=== PATIENT | female | born 2000 | race Caucasian/White ===

== ENCOUNTER → 2021-07-09 | Outpatient (CLI) | payer MEDICAID ==
[2021-07-09 17:37] LABS: HEMATOCRIT 35.9 % (36.0-47.0); HEMOGLOBIN 11.7 g/dl (12.0-15.5); MEAN CORPUSCULAR HEMOGLOBIN 27.9 pg (27.0-33.0); MEAN CORPUSCULAR HGB CONC 32.6 g/dl (32.0-36.5); MEAN CORPUSCULAR VOLUME 85.7 fl (80.0-96.0); PLATELET COUNT, AUTOMATED 335 10^3/uL (150-450); RED BLOOD COUNT 4.19 10^6/uL (4.00-5.40); WHITE BLOOD COUNT 7.6 10^3/uL (4.0-10.0)
[2021-07-09 19:35] LABS: HEPATITIS C VIRUS ABY INDEX 0.1 INDEX (<0.8); HIV 1&2 SCREEN CENTAUR NEGATIVE (NEGATIVE)
[2021-07-10 12:33] LABS: GC DNA AMPLIFICATION NEGATIVE (NEGATIVE)
== END ==
LOC: M PLALAB 15:47
PROVIDERS: ATTEND Advanced Practice Midwife
DX: Z34.91 Encounter for supervision of normal pregnancy, unspecified, first trimester (principal); Z3A.00 Weeks of gestation of pregnancy not specified

== ENCOUNTER → 2021-07-09 | Outpatient (CLI) | payer MEDICAID | LOC: M WHC 15:02 | PROVIDERS: ATTEND Advanced Practice Midwife | DX: Z34.02 Encounter for supervision of normal first pregnancy, second trimester (principal); Z3A.20 20 weeks gestation of pregnancy ==

== ENCOUNTER → 2021-10-08 | Outpatient (CLI) | payer MEDICAID ==
[2021-10-08 13:13] LABS: HEMATOCRIT 33.3 % (36.0-47.0); HEMOGLOBIN 10.6 g/dl (12.0-15.5); MEAN CORPUSCULAR HGB CONC 31.8 g/dl (32.0-36.5); MEAN CORPUSCULAR VOLUME 84.9 fl (80.0-96.0); PLATELET COUNT, AUTOMATED 271 10^3/uL (150-450); RED BLOOD COUNT 3.92 10^6/uL (4.00-5.40)
[2021-10-08 14:32] LABS: GC DNA AMPLIFICATION NEGATIVE (NEGATIVE)
== END ==
LOC: M PLALAB 10:15
PROVIDERS: ATTEND Obstetrics & Gynecology
DX: Z36.9 Encounter for antenatal screening, unspecified (principal); Z3A.33 33 weeks gestation of pregnancy

== ENCOUNTER → 2021-11-05 | Outpatient (REF) | payer MEDICAID | LOC: M SFHCWAGY 09:56 | PROVIDERS: ATTEND Obstetrics & Gynecology | DX: Z36.85 Encounter for antenatal screening for Streptococcus B (principal) ==

== ENCOUNTER 2021-11-24 21:41 | Inpatient (IN) | payer MEDICAID ==
[2021-11-24] VITALS (10 sets, daily range): BP systolic 111–172; BP diastolic 63–87
[~2021-11-24] VITALS: Ht 154.9 cm; Wt 71.9 kg
[2021-11-24] MEDS ORDERED: PRENTAB9 PO (22:06)
[2021-11-24] MEDS ORDERED: HOME MED LIST COMPLETE! XX SCH (22:10)
[2021-11-24] MEDS ORDERED: LR 1,000 ML IV ONE (22:45)
[2021-11-24 23:00] LABS: HEMATOCRIT 33.3 % (36.0-47.0); MEAN CORPUSCULAR HEMOGLOBIN 26.6 pg (27.0-33.0); MEAN CORPUSCULAR VOLUME 80.6 fl (80.0-96.0); PLATELET COUNT, AUTOMATED 264 10^3/uL (150-450); RED BLOOD COUNT 4.13 10^6/uL (4.00-5.40); WHITE BLOOD COUNT 12.9 10^3/uL (4.0-10.0)
[2021-11-24] MEDS ORDERED: EPIDURAL COMMENT XX SCH (23:15)
[2021-11-24] MEDS ORDERED: FENTANYL/ROPIVACAINE/NACL BAG 100 ML EPIDURAL SCH (23:15)
[2021-11-24] MEDS ORDERED: diphenhydrAMINE 50MG/ML VIAL (J1200) IV PRN (23:15)
[2021-11-24] MEDS ORDERED: EPIDURAL/PCA KEYS XX PRN (23:15)
[2021-11-24] MEDS ORDERED: LACTATED RINGER'S 1000 ML IV PRN (23:15)
[2021-11-24] MEDS ORDERED: ONDANSETRON 4MG/2ML VIAL IV PRN (23:15)
[2021-11-24] MEDS ORDERED: ePHEDrine SULFATE 25 MG/5 ML(5MG/ML) SYRINGE IV PRN (23:15)
[2021-11-24] MEDS ORDERED: REFRIGERATOR IV KEYS XX PRN (23:15)
[2021-11-24] MEDS ORDERED: NALOXONE INJ 0.4MG/1ML VIAL (J2310 PER 1MG) IV PRN (23:15)
[2021-11-24] MEDS ORDERED: FENTANYL 2MCG/ML ROPIVACAINE 0.2% IN 0.9% NACL 100ML IVBAG As Ordered ONE (23:21)
[2021-11-25] VITALS (16 sets, daily range): BP systolic 110–137; BP diastolic 59–70
[2021-11-25] MEDS ORDERED: OXYTOCIN 30 UNITS IN 0.9% NaCl 500ML IV BAG (J2590) As Ordered ONE ×2 (00:23→04:05)
[2021-11-25] MEDS ORDERED: MEASLES,MUMPS,RUBELLA VACCINE INJ (MMR-II) (90707) SC SCH (03:15)
[2021-11-25] MEDS ORDERED: RHOGAM 300 MCG (1500 IU) INJ (J2790) IM SCH (03:15)
[2021-11-25] MEDS ORDERED: METHYLERGONOVINE MALEATE 0.2 MG TAB PO PRN (03:15)
[2021-11-25] MEDS ORDERED: ACETAMINOPHEN TAB 650MG DOSE (2X325MG) PO PRN (03:15)
[2021-11-25] MEDS ORDERED: DOCUSATE SODIUM 100MG CAPSULE PO PRN (03:15)
[2021-11-25] MEDS ORDERED: IBUPROFEN 600MG TAB PO PRN (03:15)
[2021-11-25] MEDS ORDERED: OXYTOCIN DRIP 30 UNITS in IV 1 EA IV SCH (04:05)
[2021-11-25] MEDS: OXYTOCIN DRIP 30 UNITS in IV 1 EA IV SCH ×5 (04:22→20:05)
[2021-11-25] MEDS: PRENATAL VITAMINS CHEWABLE TABLET PO SCH (09:23)
[2021-11-25] MEDS: ACETAMINOPHEN 500 MG TAB PO PRN ×2 (10:57→17:42)
[2021-11-25] MEDS: IBUPROFEN 800 MG TAB PO PRN (21:35)
[2021-11-26 06:02] VITALS: BP 113/59
[2021-11-26] MEDS: PRENATAL VITAMINS CHEWABLE TABLET PO SCH (09:18)
[2021-11-26] MEDS: IBUPROFEN 800 MG TAB PO PRN (09:18)
[2021-11-26] MEDS ORDERED: IBUP80TA PO (10:42)
[2021-11-26] MEDS ORDERED: ACET-683 PO (10:42)
== END 2021-11-26 15:15 | disposition home or self-care (01) | DRG 560 ==
LOC: M LDO 21:41 → M LDI 22:16 → M OBS 11-25 04:50
PROVIDERS: ADMIT Obstetrics & Gynecology; ATTEND Obstetrics & Gynecology
PROC: 10E0XZZ Delivery of Products of Conception, External Approach (ICD-10-PCS; principal; 2021-11-25)
DX: O80 Encounter for full-term uncomplicated delivery (principal); Z37.0 Single live birth; Z3A.39 39 weeks gestation of pregnancy